=== PATIENT | female | born 1955 | race Caucasian/White ===

== ENCOUNTER 2017-09-29 13:17 | Inpatient (IN) | payer BC ==
[~2017-09-29] VITALS: Ht 162.6 cm; Wt 78.0 kg
[2017-09-29 13:17] VITALS: BP_SYST 190
[2017-09-29] MEDS ORDERED: DIPHENHYDRAMINE INJ 50 MG/ML VIAL IVP ONE (13:45)
[2017-09-29] MEDS ORDERED: MAG HYDROX/AL HYDROX/SIMETH 30 ML, BELLADONNA ALKALOIDS/PHENOBARB 10 ML, LIDOCAINE VISC... PO ONE ×3 (13:45)
[2017-09-29] MEDS ORDERED: MORPHINE 4 MG/ML INJ. SYRINGE IVP ONE ×2 (13:45→16:30)
[2017-09-29 14:29] LABS: BASOPHILS % (AUTO) 0.3 % (0.0-2.0); EOSINOPHILS # (AUTO) 0.1 K/uL (0.0-0.4); EOSINOPHILS % (AUTO) 0.6 % (0.0-4.0); HEMATOCRIT 38.5 % (36-48); HEMOGLOBIN 13.1 g/dL (12.0-16.0); LYMPHOCYTES % (AUTO) 10.6 % (20.5-51.5); MEAN CORPUSCULAR HEMOGLOBIN 29 pg (27-31); MEAN CORPUSCULAR HGB CONC 34 % (32-36); MEAN CORPUSCULAR VOLUME 85 fL (79.0-98.0); MONOCYTES # (AUTO) 0.6 K/uL (0.0-1.0); NEUTROPHILS # (AUTO) 7.9 K/uL (1.8-7.7); NEUTROPHILS % (AUTO) 82.5 % (40.0-70.0); PLATELET COUNT (AUTO) 202 K/uL (130-430); RED BLOOD CELL COUNT(AUTO) 4.55 MIL/uL (4.2-6.2); RED CELL DISTRIBUTION WIDTH 13.2 % (9.0-15.0); WHITE BLOOD COUNT (AUTO) 9.6 K/uL (4.8-10.8)
[2017-09-29 14:40] LABS: PROTHROMBIN TIME 10.3 SECS (9.5-12.5)
[2017-09-29 14:42] LABS: BILIRUBIN,URINE NEGATIVE (NEGATIVE); BLOOD, URINE NEGATIVE (NEGATIVE); CLARITY/URINE CLEAR (CLEAR); COLOR,URINE YELLOW (YELLOW); GLUCOSE,URINE NEGATIVE (NEGATIVE); KETONES,URINE NEGATIVE (NEGATIVE); LEUKOCYTE ESTERASE ,URINE 1+ (NEGATIVE); NITRITE, URINE NEGATIVE (NEGATIVE); PH,URINE 6.5 (5.0-8.0); PROTEIN URINE NEGATIVE (NEGATIVE); UROBILINOGEN,URINE 0.2 (0.2-1.0)
[2017-09-29 14:54] LABS: CALCIUM 9.7 mg/dL (8.4-11.0); CREATININE 0.68 mg/dL (0.55-1.30); POTASSIUM 3.4 mmol/L (3.5-5.1)
[2017-09-29 14:58] LABS: BACTERIA,URINE RARE /HPF (None Seen); RBC,URINE 0-3 /HPF (0-3)
[2017-09-29 15:00] LABS: TOTAL BILIRUBIN 0.7 mg/dL (0.0-1.0)
[2017-09-29] MEDS ORDERED: MORPHINE 4 MG/ML INJ. SYRINGE ONE (15:14)
[2017-09-29] MEDS ORDERED: ONDANSETRON HCL 4 MG/2 ML VIAL IVP ONE (16:30)
[2017-09-29] MEDS ORDERED: POTASSIUM CHLORIDE 20 MEQ TAB.PRT.SR PO PRN (16:45)
[2017-09-29] MEDS ORDERED: D5NS 1,000 ML IV ONE (16:45)
[2017-09-29] MEDS ORDERED: ACETAMINOPHEN 325 MG TABLET PO PRN (16:45)
[2017-09-29] MEDS ORDERED: MORPHINE SULFATE 10 MG/ML VIAL IVP PRN (16:45)
[2017-09-29] MEDS ORDERED: LORazepam 2 MG/ML VIAL IVP PRN (16:45)
[2017-09-29] MEDS ORDERED: DOCUSATE SODIUM 100 MG CAPSULE PO PRN (16:45)
[2017-09-29] MEDS ORDERED: MAGNESIUM SULFATE 50 ML IV PRN (16:45)
[2017-09-29] MEDS ORDERED: MUPIROCIN 2% TOPICAL OINTMENT 22 GM NS PRN (16:45)
[2017-09-29 16:56] VITALS: BP_SYST 171
[2017-09-29] MEDS ORDERED: METOPROLOL TARTRATE 25 MG TABLET ONE (17:43)
[2017-09-29] MEDS: METOPROLOL TARTRATE 25 MG TABLET PO SCH ×2 (17:55→21:09)
[2017-09-29] MEDS ORDERED: LOSA100T11 PO (18:37)
[2017-09-29] MEDS ORDERED: LIP20 PO (18:37)
[2017-09-29] MEDS ORDERED: PRO20 PO (18:37)
[2017-09-29] MEDS ORDERED: AMLO5TAB4 PO (18:37)
[2017-09-29 20:29] VITALS: BP_SYST 135
[2017-09-29] MEDS: ONDANSETRON HCL 4 MG/2 ML VIAL IVP PRN (21:08)
[2017-09-29] MEDS: MORPHINE 2 MG/ML INJ. SYRINGE IVP PRN (21:08)
[2017-09-29] MEDS: HEPARIN SODIUM,PORCINE 5000 UNITS/ML VIAL SUBCUT SCH (21:10)
[2017-09-29] MEDS: ZOLPIDEM TARTRATE 5 MG TABLET PO PRN (21:12)
[2017-09-30 00:29] VITALS: BP_SYST 153
[2017-09-30 06:56] LABS: BASOPHILS % (AUTO) 0.3 % (0.0-2.0); EOSINOPHILS # (AUTO) 0.1 K/uL (0.0-0.4); EOSINOPHILS % (AUTO) 1.8 % (0.0-4.0); HEMATOCRIT 36.3 % (36-48); HEMOGLOBIN 12.2 g/dL (12.0-16.0); LYMPHOCYTES # (AUTO) 1.1 K/uL (1.0-5.5); LYMPHOCYTES % (AUTO) 22.6 % (20.5-51.5); MEAN CORPUSCULAR HEMOGLOBIN 29 pg (27-31); MEAN CORPUSCULAR HGB CONC 34 % (32-36); MEAN CORPUSCULAR VOLUME 86 fL (79.0-98.0); MONOCYTES # (AUTO) 0.3 K/uL (0.0-1.0); NEUTROPHILS # (AUTO) 3.5 K/uL (1.8-7.7); NEUTROPHILS % (AUTO) 69.3 % (40.0-70.0); PLATELET COUNT (AUTO) 188 K/uL (130-430); RED BLOOD CELL COUNT(AUTO) 4.23 MIL/uL (4.2-6.2); RED CELL DISTRIBUTION WIDTH 13.1 % (9.0-15.0)
[2017-09-30 07:11] LABS: CALCIUM 8.7 mg/dL (8.4-11.0); CREATININE 0.71 mg/dL (0.55-1.30); POTASSIUM 3.9 mmol/L (3.5-5.1)
[2017-09-30 08:00] VITALS: BP_SYST 138
[2017-09-30] MEDS: METOPROLOL TARTRATE 25 MG TABLET PO SCH ×2 (09:07→20:50)
[2017-09-30] MEDS: HEPARIN SODIUM,PORCINE 5000 UNITS/ML VIAL SUBCUT SCH ×2 (09:10→20:51)
[2017-09-30 12:12] VITALS: BP_SYST 138
[2017-09-30 16:48] VITALS: BP_SYST 137
[2017-09-30 20:00] VITALS: BP_SYST 132
[2017-09-30] MEDS: ZOLPIDEM TARTRATE 5 MG TABLET PO PRN (20:49)
[2017-10-01 00:22] VITALS: BP_SYST 138
[2017-10-01 07:27] LABS: BASOPHILS % (AUTO) 0.4 % (0.0-2.0); EOSINOPHILS # (AUTO) 0.2 K/uL (0.0-0.4); EOSINOPHILS % (AUTO) 4.2 % (0.0-4.0); HEMATOCRIT 35.4 % (36-48); LYMPHOCYTES # (AUTO) 1.4 K/uL (1.0-5.5); LYMPHOCYTES % (AUTO) 32.4 % (20.5-51.5); MEAN CORPUSCULAR HEMOGLOBIN 29 pg (27-31); MEAN CORPUSCULAR HGB CONC 34 % (32-36); MEAN CORPUSCULAR VOLUME 85 fL (79.0-98.0); MONOCYTES # (AUTO) 0.3 K/uL (0.0-1.0); MONOCYTES % (AUTO) 7.1 % (1.7-9.3); NEUTROPHILS # (AUTO) 2.3 K/uL (1.8-7.7); NEUTROPHILS % (AUTO) 55.9 % (40.0-70.0); PLATELET COUNT (AUTO) 160 K/uL (130-430); RED BLOOD CELL COUNT(AUTO) 4.15 MIL/uL (4.2-6.2); RED CELL DISTRIBUTION WIDTH 13.3 % (9.0-15.0); WHITE BLOOD COUNT (AUTO) 4.2 K/uL (4.8-10.8)
[2017-10-01 07:45] VITALS: BP_SYST 141
[2017-10-01 07:47] LABS: ALBUMIN 3.2 g/dL (3.4-4.8); CREATININE 0.7 mg/dL (0.55-1.30); POTASSIUM 3.2 mmol/L (3.5-5.1); TOTAL BILIRUBIN 0.4 mg/dL (0.0-1.0)
[2017-10-01 08:25] LABS: TOTAL IRON BIND. CAPACITY 273 ug/dL (250-450)
[2017-10-01] MEDS: METOPROLOL TARTRATE 25 MG TABLET PO SCH (08:35)
[2017-10-01] MEDS: ONDANSETRON HCL 4 MG/2 ML VIAL IVP PRN (08:35)
[2017-10-01] MEDS: HEPARIN SODIUM,PORCINE 5000 UNITS/ML VIAL SUBCUT SCH (08:36)
[2017-10-01] MEDS: MORPHINE 2 MG/ML INJ. SYRINGE IVP PRN (08:37)
[2017-10-01 11:30] VITALS: BP_SYST 120
[2017-10-01] MEDS ORDERED: ONDA4TAB5 PO (11:32)
[2017-10-01] MEDS ORDERED: DOCU-144 PO (11:32)
[2017-10-01] MEDS ORDERED: OMEP20CA10 PO (11:32)
[2017-10-01] MEDS ORDERED: TRAM50TA92 PO (11:32)
[2017-10-01 12:01] VITALS: BP_SYST 120
[2017-10-02 09:13] LABS: HEPATITIS A AB, IgM Negative (Negative); HEPATITIS B CORE AB, IgM Negative (Negative); HEPATITIS B SURFACE AG Negative (Negative)
[2017-10-04 11:20] LABS: FERRITIN 332 ng/mL (15-150)
[2017-10-04 12:18] LABS: ANTI-SMOOTH MUSCLE AB 3 Units (0-19)
[2017-10-04 17:09] LABS: ANTI NUCLEAR AB WITH REFLEX Negative (Negative)
== END 2017-10-01 14:10 | disposition home or self-care (01) | DRG 439 ==
LOC: SED 13:17 → SMU 16:30
PROVIDERS: ADMIT General Practice; ATTEND General Practice
DX: K85.90 Acute pancreatitis without necrosis or infection, unspecified (principal); N39.0 Urinary tract infection, site not specified; E66.9 Obesity, unspecified; E78.5 Hyperlipidemia, unspecified; J45.909 Unspecified asthma, uncomplicated; Z79.899 Other long term (current) drug therapy; Z88.0 Allergy status to penicillin; Z88.8 Allergy status to other drugs, medicaments and biological substances; Z98.84 Bariatric surgery status; Z88.2 Allergy status to sulfonamides; Z90.49 Acquired absence of other specified parts of digestive tract; Z68.29 Body mass index [BMI] 29.0-29.9, adult
CPT/HCPCS: 36415; 71045; 74181; 80048; 80053; 80074; 81000-TC; 82150-TC; 82728; 83516; 83540-TC; 83550-TC; 83605; 83690-TC; 83735-TC; 84484; 85025; 85610-TC; 86038; 87040-TC; 93005; 96374; 99285; J1200; J1644; J2001; J2270; J2405; J7042